=== PATIENT | male | born 1960 | race Two or more races ===

== ENCOUNTER 2025-05-17 08:31 | Inpatient (IN) | payer OTHER ==
[~2025-05-17] VITALS: Ht 177.8 cm; Wt 97.5 kg
[2025-05-17 08:29] VITALS: BP 139/75
[2025-05-17 08:31] LABS: BASO % 0.6 % (0.1-1.2); EOS # 0.24 (0.04-0.54); EOS % 3.0 % (0.7-7.0); LYMPH # 2.38 (1.18-3.74); LYMPH % 29.7 % (19.3-53.1); MEAN PLATELET VOLUME 10.10 fl (9.4-12.4); MONO # 0.65 (0.24-0.82); MONO % 8.1 % (4.7-12.5); NEUT # 4.67 (1.56-6.13); NEUT % 58.4 % (34.0-71.1); RED CELL DISTRIBUTION WIDTH 13.4 % (11.6-14.4)
[~2025-05-17 08:31] MED LIST: AVALIDE 300-121 EACH; BYSTOLIC5 MG; CARDURA XL4 MG; CIALIS5 MG; HYDRALAZINE; LIPITOR20 MG; NORVASC10 MG
[2025-05-17 08:34] LABS: URINE APPEARANCE Clear; URINE BILIRRUBIN Negative (NEGATIVE); URINE BLOOD Negative; URINE COLOR Yellow; URINE GLUCOSE Negative (NEGATIVE); URINE KETONE Negative (NEGATIVE); URINE LEUKOCYTE Negative; URINE NITRATE Negative; URINE PROTEIN Negative (NEGATIVE); URINE UROBILINOGEN 0.2 E.U./dl
[2025-05-17 08:37] LABS: URINE BACTERIA 4.7 uL (0.0-1933); URINE EPITHELIAL CELLS 1.8 uL (0.0-38.8); URINE RBC 6.0 uL (0.0-20.8)
[2025-05-17 08:41] LABS: BUN CREA RATIO 11.0 (7.0-25.0); CREATININE SERUM 1.1 mg/dL (0.70-1.30); GFR 67.39; GLUCOSE FASTING 96.0 mg/dL (65-100); OSMOLALITY SERUM 286.0 MOSM/KG (275-295)
[2025-05-17 08:45] LABS: INR 1.04; URINE CAST 0.29 uL (0.0-1.40); URINE WBC 0.3 uL (0.0-23.2)
[2025-05-17 08:46] LABS: COVID-19 AG NEGATIVE (NEGATIVE)
[2025-05-17 10:16] LABS: RH POSITIVE
[2025-05-23] MEDS ORDERED: BUPIVACAINE HCL/MPF 0.5% 30ML VIAL ONE (06:53)
[2025-05-23] MEDS ORDERED: SURGIFLO APPLICATOR 1 EACH APPL TOP ONE (06:53)
[2025-05-23] MEDS ORDERED: HEMOSTATIC MATRIX 1 KIT KIT TOP ONE (06:53)
[2025-05-23] MEDS ORDERED: CEFAZOLIN SODIUM 1,000 MG VIAL ONE (07:03)
[2025-05-23] MEDS ORDERED: ENOXAPARIN SODIUM 40 MG/0.4 ML SYRINGE SUBCUTANEO ONE (07:03)
[2025-05-23] MEDS ORDERED: SUGAMMADEX SODIUM 200 MG/2 ML VIAL IV ONE (11:28)
[2025-05-23] MEDS ORDERED: RINGERS SOLUTION,LACTATED 1,000 ML IV SCH (11:45)
[2025-05-23] MEDS ORDERED: MORPHINE SULFATE 4 MG/ML CARTRIDGE IV PRN (11:45)
[2025-05-23] MEDS ORDERED: ONDANSETRON HCL 2 MG/ML VIAL IV PRN (11:45)
[2025-05-23] MEDS ORDERED: METOPROLOL TARTRATE 5MG/5ML AMPUL IV PRN (11:45)
[2025-05-23] MEDS ORDERED: ONDANSETRON HCL 2 MG/ML VIAL ONE (12:35)
[2025-05-23] MEDS ORDERED: MORPHINE SULFATE 4 MG/ML VIAL IV ONE ×2 (14:25→16:55)
[2025-05-23] MEDS ORDERED: GABAPENTIN 300 MG CAPSULE PO SCH (17:00)
[2025-05-23] MEDS ORDERED: GABAPENTIN 300 MG CAPSULE PO ONE (17:09)
[2025-05-23 18:02] VITALS: BP 127/75; O2SAT 94
[2025-05-23] MEDS ORDERED: FAMOTIDINE/PF 20 MG/2 ML VIAL IV SCH (21:00)
[2025-05-23] MEDS ORDERED: CEFAZOLIN SODIUM 1,000 MG VIAL IV SCH (21:00)
[2025-05-24 01:51] VITALS: BP 110/66; O2SAT 99
[2025-05-24 06:50] LABS: BASO % 0.5 % (0.1-1.2); EOS # 0.14 (0.04-0.54); EOS % 1.7 % (0.7-7.0); LYMPH # 1.67 (1.18-3.74); LYMPH % 19.8 % (19.3-53.1); MEAN PLATELET VOLUME 10.80 fl (9.4-12.4); MONO # 0.61 (0.24-0.82); MONO % 7.2 % (4.7-12.5); NEUT # 5.95 (1.56-6.13); NEUT % 70.3 % (34.0-71.1); RED CELL DISTRIBUTION WIDTH 13.2 % (11.6-14.4)
[2025-05-24 07:31] LABS: BUN CREA RATIO 8.0 (7.0-25.0); CREATININE SERUM 0.84 mg/dL (0.70-1.30); GFR 91.99; GLUCOSE FASTING 97.0 mg/dL (65-100); OSMOLALITY SERUM 285.0 MOSM/KG (275-295)
[2025-05-24 08:29] VITALS: BP 128/65; O2SAT 97
[2025-05-24] MEDS ORDERED: ENOXAPARIN SODIUM 40 MG/0.4 ML SYRINGE SUBCUTANEO SCH (09:00)
[2025-05-24] MEDS ORDERED: DOXAZOSIN MESYLATE 4 MG TABLET PO SCH (09:00)
[2025-05-24] MEDS ORDERED: AMLODIPINE BESYLATE 10 MG TABLET PO SCH (09:00)
== END 2025-05-24 10:27 | disposition home or self-care (01) | DRG 708 ==
LOC: O/R 05-23 06:00 → SURH 05-23 06:00 → EDSTATUS 05-23 08:45 → SURH 05-23 08:45 → CIR.AMB 05-23 08:45 → SURH 05-23 11:45
PROVIDERS: ADMIT Urology; ATTEND Urology
PROC: 8E0W4CZ Robotic Assisted Procedure of Trunk Region, Percutaneous Endoscopic Approach (ICD-10-PCS; 2025-05-23)
PROC: 0VT04ZZ Resection of Prostate, Percutaneous Endoscopic Approach (ICD-10-PCS; principal; 2025-05-23 11:45)
DX: C61 Malignant neoplasm of prostate (principal)
CPT/HCPCS: 55866; S2900